=== PATIENT | female | born 1975 | race Caucasian/White ===

== ENCOUNTER 2020-12-12 00:44 | Emergency (ER) | payer OTHER, MEDICAID ==
[~2020-12-12] VITALS: Ht 154.9 cm; Wt 118.0 kg
[2020-12-12] MEDS ORDERED: MAGNESIUM/ALUMINUM HYDROXIDE/SIMETHICONE 30ML UDC PO STA (02:30)
[2020-12-12] MEDS ORDERED: ACETAMINOPHEN WITH CODEINE 300/30MG TABLET PO STA (02:30)
[2020-12-12 02:42] LABS: CLARITY URINE CLEAR (CLEAR); COLOR URINE YELLOW (YELLOW); KETONES URINE NEGATIVE (NEGATIVE); LEUKOCYTE ESTERASE URINE 1+ (NEGATIVE); NITRITE URINE NEGATIVE (NEGATIVE); OCCULT BLOOD URINE 1+ (NEGATIVE); PROTEIN URINE TRACE (NEGATIVE); SPECIFIC GRAVITY URINE 1.017 (1.005-1.030); UROBILINOGEN URINE 0.2 E.U./dL (0.2-1.0)
[2020-12-12 03:39] LABS: BASOPHILS % 0.6 % (0.0-2.0); EOSINOPHILS % 1.4 % (0.0-5.0); HEMATOCRIT. 47.3 % (36.0-48.0); HEMOGLOBIN. 15.7 g/dL (12.0-16.0); LYMPHOCYTES % 19.8 % (20.0-50.0); MEAN CORPUSCULAR HEMOGLOBIN 29.5 pg (28.0-32.0); MEAN CORPUSCULAR VOLUME 88.6 fL (81.0-99.0); MONOCYTES % 6.8 % (2.0-8.0); NEUTROPHILS % 71.4 % (40.0-76.0); PLATELET 296 x1000/uL (130-400); RED BLOOD CELL COUNT 5.34 mill/uL (4.2-5.4); RED CELL DISTRIBUTION WIDTH 13.2 % (11.6-14.6)
[2020-12-12 03:41] LABS: CHLORIDE 110 mEq/L (98-107)
[2020-12-12 03:48] LABS: HCG SCREEN NEGATIVE
[2020-12-12] MEDS ORDERED: ONDA4TAB5 MT (05:05)
[2020-12-12] MEDS ORDERED: IBUP-2028 MT (05:05)
[2020-12-12 05:49] VITALS: BP 108/59
== END 2020-12-12 05:50 | disposition home or self-care (01) ==
LOC: ER 01:11 → EDBD 01:11 → ER 05:50
DX: K80.20 Calculus of gallbladder without cholecystitis without obstruction (principal)
CPT/HCPCS: 36415; 76705; 80053; 81003; 84703; 85025; 93005; 99285